=== PATIENT | female | born 1955 | race Caucasian/White ===

== ENCOUNTER 2018-07-26 12:24 | Emergency (ER) | payer OTHER, MEDICAID ==
--- NOTE | 2018-07-26 12:14 | EDPHY ---
H & P Time Seen by Provider: 07/26/18 12:31 Constitutional: Initial Vital Signs Temperature (C) 36.4 C 07/26/18 12:24 Heart Rate 103 H 07/26/18 12:24 Respiratory Rate 20 07/26/18 12:24 Blood Pressure 137/98 H 07/26/18 12:24 O2 Sat (%) 96 07/26/18 12:24 O2 Delivery Mode Room Air Allergies/Adverse Reactions: No Known Allergies Allergy (Verified 07/26/18 14:35) Home Medications: Medication Instructions Recorded Albuterol [Proventil Inhaler HFA 1 - 2 puffs IH Q4H PRN 07/26/18 (*)] Atorvastatin Calcium [Lipitor 20 20 mg PO HS 07/26/18 mg (*)] Cephalexin [Keflex (*)] 500 mg PO TID #21 cap 07/26/18 Cholecalciferol Vit D3 [Vitamin D3 1,000 units PO DAILY 07/26/18 (*)] Gabapentin [Neurontin 300 MG (*)] 300 mg PO TID 07/26/18 Herbals/Supplements -Info Only 1 ea PO DAILY 07/26/18 Ibuprofen [Motrin (*)] 800 mg PO TID PRN 07/26/18 LORazepam [Ativan (*)] 1 mg PO DAILY 07/26/18 Melatonin [Melatonin 3 MG (*)] 6 mg PO HS 07/26/18 Multivitamins [Multivitamin (*)] 1 each PO DAILY 07/26/18 OLANZapine [Zyprexa] 15 mg PO HS 07/26/18 Sertraline HCl [Zoloft 100mg (*)] 200 mg PO DAILY 07/26/18 buPROPion SR [Wellbutrin 100mg SR 200 mg PO DAILY 07/26/18 (*)] Medical Decision Making ED Course/Re-evaluation: CHIEF COMPLAINT: Psychiatric evaluation HISTORY OF PRESENT ILLNESS: The patient is a 63 y/o female with a history of depression arriving via EMS on an M1 hold. Per EMS, the patient went to [facility] today after she forgot to take her depression medication today. She went home and then presented to [facility] crisis center. A provider at [facility] placed the patient on an M1 hold and transported the patient to this emergency department. She currently states that "I don't want to live anymore cause my daughter is no longer here." No fever, headache, body aches, lightheadedness, chest pain, heart palpitations, shortness of breath, cough, abdominal pain, urinary or bowel complaints, numbness, paresthesias. REVIEW OF SYSTEMS: A comprehensive 10 system review of systems is otherwise negative aside from elements mentioned in the history of present illness and medical decision making. PHYSICAL EXAM: General Appearance: Alert, well hydrated, appropriate, and non-toxic appearing. Head: Atraumatic without scalp tenderness or obvious injury Eyes: Pupils equal, round, reactive to light and accommodation, EOMI, no trauma , no injection. Ears: Clear bilaterally, no perforation, normal landmarks Nose: Atraumatic, no rhinorrhea, clear. Throat: There is no erythema or exudates, no lesions, normal tonsils, mucus membranes moist. Neck: Supple, 2+ carotid upstroke, nontender, no lymphadenopathy. Respiratory: No retractions, no distress, no wheezes, and no accessory muscle use. Lungs are clear to auscultation bilaterally. Cardiovascular: Regular rate and rhythm, no murmurs, rubs, or gallops. Bilateral carotid, radial, dorsalis pedis, and posterior tibial pulses intact. Good capillary refill all extremities. Gastrointestinal: Abdomen is soft, nontender, non-distended, no masses, no rebound, no guarding, no peritoneal signs. Musculoskeletal: Normal active ROM of all extremities, atraumatic. Neurological: Alert, appropriate, and interactive. The patient has normal DTRs and non-focal cranial nerves, motor, sensory, and cerebellar exam. Skin: No rashes, good turgor, no nodules on palpation. Pysch: Expresses suicidal ideation, tearful Past medical history: Depression Past surgical history: Denies Family history: Denies Social history: Lives in [place], single, not employed DIFFERENTIAL DIAGNOSIS: The differential diagnosis for the patient's depression included but was not limited to functional and major depression, situational depression, medication side effect, drugs, and alcohol abuse. MEDICAL DECISION MAKING: The patient is a 63 y/o female with a history of depression arriving via EMS on an M1 hold for suicidal ideations. Patient is in no acute distress and is hemodynamically stable. We are awaiting psychiatric team's evaluation. Patient has known history of psychiatric disorders and is here for evaluation. 1413: Patient has mild back pain and a slightly elevated WBC; UA ordered. We are still awaiting psychiatric evaluation. 1435: Patient's UA reveals a UTI; I will start her on Keflex. 1500: Patient care turned over to Dr. Granger at shift change; psych eval still pending. (Jesus Ceja) Other Provider: Patient was signed out to me at [address] Ceja, pending mental health evaluation. At 1645, I was informed that mental health has completed their evaluation and feel that the patient is safe for discharge with appropriate follow-up. She apparently admits to chronic SI with no intention to act on it. They feel she is low-risk for self-harm and have terminated the M1 hold. ( Ronak Granger) - Data Points Laboratory Results: Laboratory Results 07/26/18 12:40 07/26/18 12:40 07/26/18 07/26/18 07/26/18 13:20 13:20 12:40 WBC RBC Hgb Hct MCV MCH MCHC RDW Plt Count MPV Neut % (Auto) Lymph % (Auto) Bacon % (Auto) Eos % (Auto) Baso % (Auto) Nucleat RBC Rel Count Absolute Neuts (auto) Absolute Lymphs (auto) Absolute Monos (auto) Absolute Eos (auto) Absolute Basos (auto) Absolute Nucleated RBC Immature Gran % Immature Gran # Sodium 140 mEq/L mEq/L (135-145) Potassium 4.0 mEq/L mEq/L (3.5-5.2) Chloride 105 mEq/L mEq/L (97-110) Carbon Dioxide 23 mEq/l mEq/l (22-31) Anion Gap 12 mEq/L mEq/L (6-14) BUN 9 mg/dL mg/dL (7-23) Creatinine 1.0 mg/dL mg/dL (0.6-1.0) Estimated GFR 56 Glucose 84 mg/dL mg/dL (70-100) Calcium 10.2 mg/dL mg/dL (8.5-10.4) Urine Color YELLOW Urine Appearance CLEAR Urine pH 7.0 (5.0-7.5) Ur Specific [place] 1.012 (1.002-1.030) Urine Protein NEGATIVE (NEGATIVE) Urine Ketones TRACE H (NEGATIVE) Urine Blood NEGATIVE (NEGATIVE) Urine Nitrate NEGATIVE (NEGATIVE) Urine Bilirubin NEGATIVE (NEGATIVE) Urine Urobilinogen 2.0 EU H EU (0.2-1.0) Ur Leukocyte Esterase 2+ H (NEGATIVE) Urine RBC 1-3 /hpf /hpf (0-3) Urine WBC 25-50 /hpf H /hpf (0-3) Ur Epithelial Cells TRACE /lpf /lpf (NONE-1+) Urine Glucose NEGATIVE (NEGATIVE) Urine Opiates Screen NEGATIVE (NEGATIVE) Urine Barbiturates NEGATIVE (NEGATIVE) Ur Phencyclidine Scrn NEGATIVE (NEGATIVE) Ur Amphetamine Screen NEGATIVE (NEGATIVE) U Benzodiazepines Scrn NON-NEGATIVE H (NEGATIVE) Urine Cocaine Screen NEGATIVE (NEGATIVE) U Marijuana (THC) Screen NEGATIVE (NEGATIVE) 07/26/18 12:40 WBC 10.96 10^3/uL H 10^3/uL (3.80-9.50) RBC 5.84 10^6/uL H 10^6/uL (4.18-5.33) Hgb 17.8 g/dL H g/dL (12.6-16.3) Hct 54.3 % H % (38.0-47.0) MCV 93.0 fL fL (81.5-99.8) MCH 30.5 pg pg (27.9-34.1) MCHC 32.8 g/dL g/dL (32.4-36.7) RDW 15.3 % H % (11.5-15.2) Plt Count 368 10^3/uL 10^3/uL (150-400) MPV 9.9 fL fL (8.7-11.7) Neut % (Auto) 66.9 % % (39.3-74.2) Lymph % (Auto) 22.9 % % (15.0-45.0) Bacon % (Auto) 7.5 % % (4.5-13.0) Eos % (Auto) 1.4 % % (0.6-7.6) Baso % (Auto) 0.6 % % (0.3-1.7) Nucleat RBC Rel Count 0.0 % % (0.0-0.2) Absolute Neuts (auto) 7.33 10^3/uL H 10^3/uL (1.70-6.50) Absolute Lymphs (auto) 2.51 10^3/uL 10^3/uL (1.00-3.00) Absolute Monos (auto) 0.82 10^3/uL H 10^3/uL (0.30-0.80) Absolute Eos (auto) 0.15 10^3/uL 10^3/uL (0.03-0.40) Absolute Basos (auto) 0.07 10^3/uL 10^3/uL (0.02-0.10) Absolute Nucleated RBC 0.00 10^3/uL 10^3/uL (0-0.01) Immature Gran % 0.7 % % (0.0-1.1) Immature Gran # 0.08 10^3/uL 10^3/uL (0.00-0.10) Sodium Potassium Chloride Carbon Dioxide Anion Gap BUN Creatinine Estimated GFR Glucose Calcium Urine Color Urine Appearance Urine pH Ur Specific [place] Urine Protein Urine Ketones Urine Blood Urine Nitrate Urine Bilirubin Urine Urobilinogen Ur Leukocyte Esterase Urine RBC Urine WBC Ur Epithelial Cells Urine Glucose Urine Opiates Screen Urine Barbiturates Ur Phencyclidine Scrn Ur Amphetamine Screen U Benzodiazepines Scrn Urine Cocaine Screen U Marijuana (THC) Screen Medications Given: Discontinued Medications Bupropion HCl (Wellbutrin Sr) 200 mg PO EDNOW ONE Stop: 07/26/18 14:15 Last Admin: 07/26/18 15:18 Dose: 200 mg Cephalexin HCl (Keflex) 500 mg PO EDNOW ONE PRN Reason: Protocol Stop: 07/26/18 14:35 Last Admin: 07/26/18 15:18 Dose: 500 mg Gabapentin (Neurontin) 300 mg PO EDNOW ONE Stop: 07/26/18 14:15 Last Admin: 07/26/18 14:28 Dose: 300 mg Ibuprofen (Motrin) 800 mg PO EDNOW ONE Stop: 07/26/18 14:15 Last Admin: 07/26/18 14:28 Dose: 800 mg Lorazepam (Ativan) 1 mg PO EDNOW ONE Stop: 07/26/18 14:15 Last Admin: 07/26/18 14:28 Dose: 1 mg Olanzapine (Olanzapine) 10 mg PO ONCE ONE Stop: 07/26/18 12:43 Last Admin: 07/26/18 12:56 Dose: 10 mg Sertraline HCl (Zoloft) 200 mg PO EDNOW ONE Stop: 07/26/18 14:31 Last Admin: 07/26/18 15:18 Dose: 200 mg Departure - Departure Clinical Impression: Suicidal ideation UTI (urinary tract infection) Qualifiers: Urinary tract infection type: site unspecified Hematuria presence: without hematuria Qualified Code(s): N39.0 - Urinary tract infection, site not specified Condition: Good Additional Instructions: 1. Take Keflex as prescribed for your UTI. Referrals: Patient,NotPresent [Unknown] - As per Instructions Prescriptions: Cephalexin [Keflex (*)] 500 mg PO TID #21 cap Report Scribed for: Jesus Ceja Report Scribed by: Albina Shannon Date of Report: 07/26/18 Time of Report: 12:31
[2018-07-26] MEDS ORDERED: OLANZapine 5 MG TAB PO ONE (12:42)
[2018-07-26 13:59] LABS: PLATELET COUNT 368 10^3/uL (150-400)
[2018-07-26] MEDS ORDERED: LORazepam 1 MG TAB PO ONE (14:14)
[2018-07-26] MEDS ORDERED: buPROPion SR 100 MG TAB PO ONE (14:14)
[2018-07-26] MEDS ORDERED: IBUPROFEN 800 MG TAB PO ONE (14:14)
[2018-07-26] MEDS ORDERED: GABAPENTIN 300 MG CAP PO ONE (14:14)
[2018-07-26] MEDS ORDERED: SERTRALINE HCL 100 MG TAB PO SCH (14:15)
[2018-07-26] MEDS ORDERED: SERTRALINE HCL 100 MG TAB PO ONE (14:30)
[2018-07-26] MEDS ORDERED: CEPHALEXIN 500 MG CAP PO ONE (14:34)
[2018-07-26 16:31] VITALS: BP 138/93
--- NOTE | 2018-07-26 17:41 | ASMTTCLDSP ---
TLC Discharge Disposition Disposition: Answers: Discharge If Answers: Yes DISCHARGED: Patient/family given suicide hotline info & [employer] brochure? Disposition Notes: Notes: Pt will follow up with her career representative Laura Jerica on Thursday at 9am. Pt will follow up with her psychiatrist the week of August. Pt will follow up with her therapist at [facility] Sydnee Mac for next week. Pt stated she plans to ask her therapist about starting DBT as it recommended. Discharge Concerns/Recommendations: Notes: In consultation with [facility] ED physician, Ronak Granger MD, and on-call psychiatrist, Tavares Claudio MD, both concurred that pt does not appear to meet 27-65 criteria requiring psychiatric hospitalization as pt does not appear to be an imminent risk of harm to self/others/gravely disabled due to a mental illness condition. . Pt was read the Patient Rights and Responsibilities Statement on 07/26/2018, original placed on chart, and was given photocopy of Rights. Pt signed the Patient Rights. Pt came from [facility] with patient rights signed. Was patient given the Answers: Not applicable Inpatient Behavioral Health Prohibited Belongings List while in the ED? Psychiatrist vacating M1 Tavares Claudio MD Hold: Date and time M1 hold 07/26/2018 04:45 PM vacated (time format is hh:mm): Date Signed: 07/26/2018 05:41 PM Electronically Signed By:Gabi Ibarra
--- NOTE | 2018-07-26 17:47 | ASMTLCPROG ---
Notes Note: Notes: Pt came from [facility] on an M1 and her patient rights that were already signed. This proposal writer did not review patient rights with pt, as they had already been signed by [facility] staff and pt prior to arrival at [facility]. This proposal writer did ask pt if she had received a copy of her rights. Pt stated she believes they are in her purse. This proposal writer also asked pt if she wanted a copy of her M1 hold. Pt declined. Date Signed: 07/26/2018 05:46 PM Electronically Signed By:Gabi Ibarra
== END 2018-07-26 17:09 | disposition home or self-care (01) ==
LOC: EDUNIT#
PROC: GZ11ZZZ Psychological Tests, Personality and Behavioral (ICD-10-PCS; principal; 2018-07-26)
DX: R45.851 Suicidal ideations (principal); N39.0 Urinary tract infection, site not specified
CPT/HCPCS: 80305